=== PATIENT | male | born 1970 | race African-American/Black ===

== ENCOUNTER 2019-07-17 12:11 | Day surgery (SDC) | payer OTHER ==
[2019-07-17] MEDS ORDERED: LIDOCAINE 1% MPF 30 ML VIAL ONE ×2 (12:25→13:03)
[2019-07-17] MEDS ORDERED: CEFAZOLIN/SWI 1gm 1 GM/10 ML SYR ONE (12:36)
--- NOTE | 2019-07-17 12:56 | ER ---
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 EMS did not bring the MSDS or the amputated part of the finger. BP 160/107 HR-97 RR-18 94% RA. Transition of care: patient was not received from another setting of care. Onset of symptoms was July 17, 2019. Risk Assessment: Do you want to hurt yourself or someone else? Patient reports no desire to harm self or others. Initial Sepsis Screen: Does the patient meet any 2 criteria? HR > 90 bpm. No. Patient's initial sepsis screen is negative. Does the patient have a suspected source of infection? Yes: Skin breakdown/wound. Care prior to arrival: None. 12:04 Method Of Arrival: EMS: [facility] sv 12:04 Acuity: COSMO 2 sv Historical: - Allergies: 12:15 No Known Allergies; sv - PMHx: 12:15 None; sv - PSHx: 12:15 None; sv - Immunization history:: Last tetanus immunization: up to date. - Social history:: Smoking status: Patient/guardian denies using tobacco. - Ebola Screening: : No symptoms or risks identified at this time. Screenin:31 Abuse screen: Denies threats or abuse. Denies injuries from another. Nutritional ca1 screening: No deficits noted. Tuberculosis screening: No symptoms or risk factors identified. Fall Risk None identified. Assessment: 12:31 General: Appears in no apparent distress. comfortable, Behavior is calm, cooperative, ca1 appropriate for age. Pain: Complains of pain in palmar aspect of distal phalanx of right index finger Pain currently is 5 out of 10 on a pain scale. Neuro: Level of Consciousness is awake, alert, obeys commands, Oriented to person, place, time, situation. Derm: Skin is healthy with good turgor, Skin is pink, warm \T\ dry. Musculoskeletal: Amputation of Clean, moderately bleeding, and diagonal. Circulation, motion, and sensation intact. Capillary refill < 3 seconds. Injury Description: Amputation sustained to palmar aspect of distal phalanx of right index finger is complete, was sustained less than 30 minutes ago. Vital Signs: 12:15 BP 144 / 97; Pulse 91; Resp 16; Temp 99; Pulse Ox 97% ; Weight 96.16 kg; Height 5 ft. sv 11 in. (180.34 cm); 12:15 Body Mass Index 29.57 (96.16 kg, 180.34 cm) sv ED Course: 12:12 Patient arrived in ED. sv 12:14 Triage completed. sv 12:15 Marika Barnett, MAGNO is Primary Nurse. ca1 12:20 Kenny Cole PA is PHCP. jr8 12:20 Ignacio Perez MD is Attending Physician. jr8 12:31 Patient has correct armband on for positive identification. Bed in low position. Call ca1 light in reach. Side rails up X 1. Pulse ox on. NIBP on. Elevated right hand. 12:34 Arm band placed on. Pressure dressing applied. Ice pack applied. ca1 12:40 No provider procedures requiring assistance completed. Initial lab(s) drawn, by sc, ca1 sent to lab. Inserted saline lock: 22 gauge in left antecubital area, using aseptic technique. Blood collected. 12:47 Hand Right 3 View XRAY In Process Unspecified. EDMS 12:53 Jaden Tang MD is Hospitalizing Provider. jr8 12:58 Patient admitted, IV remains in place. ca1 Administered Medications: 12:40 Drug: Ancef 1 grams Route: IVPB; Site: left antecubital; sv 12:59 Follow up: Response: No adverse reaction; IV Status: Completed infusion ca1 13:10 Follow up: Response: No adverse reaction; IV Status: Completed infusion ca1 12:55 Not Given (Other Intervention Used): Lidocaine (1 %) 20 ml 20 ml Infiltration once; to jr8 bedside Outcome: 12:55 Decision to Hospitalize by Provider. jr8 13:00 Admitted to OR accompanied by nurse, via wheelchair, with chart. sv 13:00 Condition: stable 13:00 Instructed on the need for admit. 13:00 Patient left the ED. sv Signatures: Dispatcher [employer] EDMS Jovani Martinezhanie, RN RN sv Kenny Cole PA PA jr8 Marika Barnett, RN RN ca1
--- NOTE | 2019-07-17 12:56 | EDPHYS ---
Physician Documentation [facility] Name: Luis M Lowery Jr Age: 48 yrs Sex: Male : 1970 Arrival Date: 07/17/2019 Time: 12:12 Bed 13 Private MD: ED Physician Ignacio Perez HPI: 07/17 12:50 This 48 yrs old Black Male presents to ER via EMS with complaints of Finger Injury. jr8 12:50 Trauma demographics: County: The injury occurred in [place]. Mechanism of injury: jr8 mechanical . Associated injuries: The patient sustained palmar aspect of distal phalanx of right index finger, partial amputation. Onset: The symptoms/episode began/occurred just prior to arrival. Pt was working on a machine with large blades and cut the distal tip of the right index finger. Historical: - Allergies: 12:15 No Known Allergies; sv - PMHx: 12:15 None; sv - PSHx: 12:15 None; sv - Immunization history:: Last tetanus immunization: up to date. - Social history:: Smoking status: Patient/guardian denies using tobacco. - Ebola Screening: : No symptoms or risks identified at this time. ROS: 12:51 Constitutional: Negative for fever, chills, and weight loss, Eyes: Negative for injury, jr8 pain, redness, and discharge, ENT: Negative for injury, pain, and discharge, Neck: Negative for injury, pain, and swelling, Cardiovascular: Negative for chest pain, palpitations, and edema, Respiratory: Negative for shortness of breath, cough, wheezing, and pleuritic chest pain, Abdomen/GI: Negative for abdominal pain, nausea, vomiting, diarrhea, and constipation, Back: Negative for injury and pain, Skin: Negative for injury, rash, and discoloration, Neuro: Negative for headache, weakness, numbness, tingling, and seizure. 12:51 MS/extremity: Positive for pain and partial amputation to right distal index finger. Exam: 12:51 Constitutional: This is a well developed, well nourished patient who is awake, alert, jr8 and in no acute distress. Head/Face: Normocephalic, atraumatic. Eyes: Pupils equal round and reactive to light, extra-ocular motions intact. Lids and lashes normal. Conjunctiva and sclera are non-icteric and not injected. Cornea within normal limits. Periorbital areas with no swelling, redness, or edema. ENT: Mucous membranes moist. Neck: Supple, full range of motion without nuchal rigidity, or vertebral point tenderness. No Meningismus. Chest/axilla: Normal chest wall appearance and motion. Nontender with no deformity. No lesions are appreciated. Cardiovascular: Regular rate and rhythm with a normal S1 and S2. No gallops, murmurs, or rubs. Normal PMI, no JVD. No pulse deficits. Respiratory: Lungs have equal breath sounds bilaterally, clear to auscultation No rales, rhonchi or wheezes noted. No increased work of breathing, no retractions or nasal flaring. Abdomen/GI: Soft, non-tender, with normal bowel sounds. No distension or tympany. No guarding or rebound. No evidence of tenderness throughout. Skin: Warm, dry with normal turgor. Normal color with no rashes, no lesions, and no evidence of cellulitis. MS/ Extremity: Pulses equal, no cyanosis. Neurovascular intact. Full, normal range of motion. 12:51 Skin: injury, partial amputation of distal tip of the right distal tip of the index finger. Vital Signs: 12:15 BP 144 / 97; Pulse 91; Resp 16; Temp 99; Pulse Ox 97% ; Weight 96.16 kg; Height 5 ft. sv 11 in. (180.34 cm); 12:15 Body Mass Index 29.57 (96.16 kg, 180.34 cm) sv MDM: 12:20 Patient medically screened. [facility] 12:49 Data reviewed: vital signs, nurses notes, radiologic studies, and as a result, I will [facility] admit patient. Counseling: I had a detailed discussion with the patient and/or guardian regarding: the historical points, exam findings, and any diagnostic results supporting the discharge/admit diagnosis, radiology results. Physician consultation: Jaden Tang MD was called at 12:45, was contacted at 12:45, regarding consult, and will see patient. 07/17 12:33 Order name: CBC with Diff; Complete Time: 15:07 8 07/17 12:33 Order name: BMP; Complete Time: 15: jr8 07/17 12:21 Order name: Hand Right 3 View XRAY; Complete Time: 15: jr8 07/17 12:33 Order name: SL; Complete Time: 12:43 jr8 07/17 12:55 Order name: Misc. Order: wet to dry dressing; Complete Time: 12:56 jr8 Administered Medications: 12:40 Drug: Ancef 1 grams Route: IVPB; Site: left antecubital; sv 12:59 Follow up: Response: No adverse reaction; IV Status: Completed infusion ca1 13:10 Follow up: Response: No adverse reaction; IV Status: Completed infusion ca1 12:55 Not Given (Other Intervention Used): Lidocaine (1 %) 20 ml 20 ml Infiltration once; to jr8 bedside Disposition: 07/18 07:22 Co-signature as Attending Physician, Ignacio Perez MD I agree with the assessment and dane plan of care. Disposition: 07/17/19 12:55 Hospitalization ordered by Jaden Tang for Observation. Preliminary diagnosis is Partial Amputation to Distal Phalanx of the Right Index Finger. - Bed requested for Operating Room. - Status is Observation. sv - Condition is Stable. - Problem is new. - Symptoms are unchanged. UTI on Admission? No Signatures: Dispatcher [employer] EDSheba Lentz RN RN Ignacio Capone MD MD cha Roszak, Josh, PA PA jr8 Marika Barnett RN ca1 Corrections: (The following items were deleted from the chart) 07/17 13:00 12:55 Hospitalization Ordered by Jaden Tang MD for Observation. Preliminary sv diagnosis is Partial Amputation to Distal Phalanx of the Right Index Finger. Bed requested for Operating Room. Status is Observation. Condition is Stable. Problem is new. Symptoms are unchanged. UTI on Admission? No. jr8
--- NOTE | 2019-07-17 12:56 | RAD REPORT ---
EXAM DESCRIPTION: RAD - Hand Right 3 View - 07/17/2019 12:47 pm CLINICAL HISTORY: amputation COMPARISON: No comparisons FINDINGS: Soft tissue and distal bony tuft amputation of the second finger is seen. No radiopaque fo reign body.
[2019-07-17 13:01] LABS: Absolute Lymphocytes (CBC) 1.8 K/uL (0.7-4.9); Basophils % 0.5 % (0-1.3); Lymphocytes % 32.7 % (15.3-44.8); MPV 8.3 fL (7.6-11.3); RBC Red Blood Cell Count 5.13 M/uL (4.33-5.43)
[2019-07-17] MEDS ORDERED: BUPIVACAINE 0.5% Inj,MDV 50 mL VIAL ONE (13:03)
[2019-07-17 13:11] LABS: Potassium 4.2 mmol/L (3.5-5.1)
[2019-07-17] MEDS ORDERED: Ringers Lactate 1,000 ML IV ONE (13:22)
[2019-07-17 14:11] VITALS: O2SAT 100
[2019-07-17] MEDS ORDERED: CODEINE 30MG/APAP 300MG TAB ONE (14:35)
[2019-07-17 15:20] VITALS: BP 162/98; TEMP 98.6
--- NOTE | 2019-07-24 23:55 | OP ---
Date of Procedure: 07/17/2019 Surgeon: Jaden Tang MD Preoperative Diagnosis: Right index finger tip amputation. Postoperative Diagnosis: Right index finger tip amputation. Procedure Performed: Debridement of skin, subcutaneous tissue, bone, flap closure. Anesthesia: Digital block with 1% Xylocaine with epinephrine. Procedure In Detail: on the operating table, 1% digital block was done using 1% Xylocaine with epinephrine. Then the hand prepped with Betadine scrub, Betadine paint, dry sterile drapes vance francisco in the usual manner. A scalpel was used to scrub the bone at the soft tissue edges. The nail pl ate was removed and the nail bed straightened as well. A saw was used to straighten the bone tip wit h tip amputation and then was filed. The wound was irrigated with dilute Betadine solution and a vol ar flap was advanced from volar to dorsal with 4-0 Prolene. The nail plate was placed wit h Xeroform 2 inch Anne-Marie. The patient tolerated the procedure well and returned to recovery. ALEXANDR/MALLORIE Voice ID: [id number] Report ID: [id number]
== END 2019-07-17 15:21 | disposition home or self-care (01) ==
LOC: ER 12:11 → OR 13:28
PROVIDERS: ATTEND Specialist
PROC: 0HXFXZZ Transfer Right Hand Skin, External Approach (ICD-10-PCS; 2019-07-17)
PROC: 0PBT0ZZ Excision of Right Finger Phalanx, Open Approach (ICD-10-PCS; principal; 2019-07-17 13:15)
DX: S68.620A Partial traumatic transphalangeal amputation of right index finger, initial encounter (principal); W31.89XA Contact with other specified machinery, initial encounter; Y93.89 Activity, other specified; Y99.0 Civilian activity done for income or pay
CPT/HCPCS: 36415; 80048; 85025; 88304; 88305; 88311; 96365; 99285; J0690; J7120